=== PATIENT | female | born 1960 | race African-American/Black ===

== ENCOUNTER 2024-06-27 13:46 | Inpatient (IN) | payer BC, OTHER ==
[~2024-06-27] VITALS: Ht 175.3 cm; Wt 119.7 kg
[2024-06-27 13:55] VITALS: O2SAT 99
[2024-06-27] MEDS: METOCLOPRAMIDE HCL 10MG TABLET PO ONE (15:49)
[2024-06-27] MEDS: DIPHENHYDRAMINE 50MG/ML VIAL IM ONE (15:49)
[2024-06-27] MEDS: KETOROLAC 30MG/ML VIAL IM ONE (15:49)
[2024-06-27 16:54] LABS: BASOPHILS % 0.1 % (0.0-2.0); HEMOGLOBIN. 12.8 g/dL (12.0-16.0); LYMPHOCYTES % 12.2 % (20.0-50.0); MEAN CORPUSCULAR HEMOGLOBIN 27.1 pg (28.0-32.0); MEAN CORPUSCULAR HGB CONC 32.9 g/dL (31.0-37.0); MEAN CORPUSCULAR VOLUME 82.2 fL (81.0-99.0); MEAN PLATELET VOLUME 7.3 fl (7.4-10.4); MONOCYTES % 3.2 % (2.0-8.0); NEUTROPHILS % 84.5 % (40.0-76.0); PLATELET 385 x1000/uL (130-400); RED BLOOD CELL COUNT 4.75 mill/uL (4.2-5.4); RED CELL DISTRIBUTION WIDTH 14.8 % (11.6-14.6); WHITE BLOOD COUNT 13.2 x1000/uL (4.5-11.0)
[2024-06-27 17:05] LABS: PROTHROMBIN TIME 10.9 sec (9.6-11.0)
[2024-06-27 17:08] LABS: POTASSIUM 4.2 mEq/L (3.5-5.1)
[2024-06-27 17:09] LABS: CALCIUM 9.6 mg/dL (8.7-10.4)
[2024-06-27 17:14] LABS: CLARITY URINE CLOUDY (CLEAR); COLOR URINE YELLOW (YELLOW); GLUCOSE URINE NEGATIVE (NEGATIVE); KETONES URINE NEGATIVE (NEGATIVE); LEUKOCYTE ESTERASE URINE TRACE (NEGATIVE); NITRITE URINE NEGATIVE (NEGATIVE); OCCULT BLOOD URINE NEGATIVE (NEGATIVE); PROTEIN URINE TRACE (NEGATIVE); SPECIFIC GRAVITY URINE 1.034 (1.005-1.030)
[2024-06-27 17:14] LABS: CREATININE 1.3 mg/dL (0.6-1.0)
[2024-06-27 17:33] LABS: WBC URINE 0-2 /hpf (0-2)
[2024-06-27 17:35] LABS: BACTERIA URINE NONE SEEN; RBC URINE NONE SEEN /hpf (0-2); SQUAMOUS EPITHELIAL CELL URINE 1+ /lpf (RARE/1+)
[2024-06-27] MEDS: MORPHINE SULFATE 4 MG/ML INJ (FOR IV/IM USE) IM ONE (17:37)
[2024-06-27 17:48] LABS: TROPONIN I HIGH SENSITIVITY 17 ng/L (3.0-34)
[2024-06-27 21:40] VITALS: BP 143/73; PULSE 63; RESP 18; TEMP 36.2
[2024-06-27] MEDS ORDERED: ACETAMINOPHEN 325MG TABLET PO PRN (22:45)
[2024-06-27] MEDS: AMLODIPINE 10MG TABLET PO SCH (22:45)
[2024-06-27] MEDS ORDERED: LORAZEPAM 0.5MG TABLET PO PRN (22:45)
[2024-06-27] MEDS ORDERED: CLONIDINE 0.1MG TABLET PO PRN (22:45)
[2024-06-27] MEDS ORDERED: MAGNESIUM/ALUMINUM HYDROXIDE/SIMETHICONE 30ML UDC PO PRN (22:45)
[2024-06-27] MEDS ORDERED: ZOLPIDEM TARTRATE 5MG TABLET PO PRN (22:45)
[2024-06-27] MEDS ORDERED: NA PHOS,M-B/NA PHOS,DI-BA ENEMA 118ML PR PRN (22:45)
[2024-06-27] MEDS ORDERED: DOCUSATE SODIUM 100MG CAPSULE PO PRN (22:45)
[2024-06-27] MEDS ORDERED: DEXTROSE 50% WATER 50ML SYRINGE IV PRN (23:00)
[2024-06-28] MEDS ORDERED: IPRATROPIUM/ALBUTEROL 0.5-3(2.5)MG/3ML NEB HHN PRN (02:30)
[2024-06-28] MEDS: PANTOPRAZOLE 40MG DR TABLET PO SCH (06:30)
[2024-06-28] MEDS: BLOOD SUGAR DIAGNOSTIC STRIP TEST SCH (06:56)
[2024-06-28 06:58] LABS: BASOPHILS % 0.1 % (0.0-2.0); EOSINOPHILS % 0.1 % (0.0-5.0); HEMATOCRIT. 36.1 % (36.0-48.0); HEMOGLOBIN. 11.9 g/dL (12.0-16.0); LYMPHOCYTES % 26.6 % (20.0-50.0); MEAN CORPUSCULAR HEMOGLOBIN 26.9 pg (28.0-32.0); MEAN CORPUSCULAR HGB CONC 32.9 g/dL (31.0-37.0); MEAN CORPUSCULAR VOLUME 81.8 fL (81.0-99.0); MEAN PLATELET VOLUME 7.1 fl (7.4-10.4); MONOCYTES % 6.4 % (2.0-8.0); NEUTROPHILS % 66.8 % (40.0-76.0); PLATELET 317 x1000/uL (130-400); RED BLOOD CELL COUNT 4.41 mill/uL (4.2-5.4); RED CELL DISTRIBUTION WIDTH 14.9 % (11.6-14.6); WHITE BLOOD COUNT 11.9 x1000/uL (4.5-11.0)
[2024-06-28] MEDS: INSULIN LISPRO 100 UNITS/ML SUBCUT SCH (07:10)
[2024-06-28 07:13] LABS: POTASSIUM 4.1 mEq/L (3.5-5.1)
[2024-06-28 07:14] LABS: CALCIUM 9.3 mg/dL (8.7-10.4)
[2024-06-28 07:16] LABS: CREATININE 1.5 mg/dL (0.6-1.0)
[2024-06-28 07:18] LABS: THYROID STIMULATING HORMONE 1.14 uIU/mL (0.55-4.78)
[2024-06-28 08:00] VITALS: BP 131/89; PULSE 56; RESP 20; TEMP 36.8; O2SAT 100
[2024-06-28] MEDS: METOPROLOL TARTRATE 50MG TABLET PO SCH (09:00)
[2024-06-28] MEDS: ENOXAPARIN 40MG/0.4ML SYR SUBCUT SCH (09:32)
[2024-06-28 12:00] VITALS: BP 151/74; PULSE 89; RESP 21; TEMP 36.8; O2SAT 98
[2024-06-28] MEDS ORDERED: AMLO10TA80 MT (13:06)
[2024-06-28] MEDS ORDERED: ATORVASTATIN CALCIUM 40MG TABLET PO SCH (21:00)
== END 2024-06-28 15:05 | disposition home or self-care (01) | DRG 199 ==
LOC: ER 13:46 → 7EST 18:38 → EDBEDREQTM 18:45 → EDBEDREQ 18:45
PROVIDERS: ADMIT Internal Medicine Pulmonary Disease; ATTEND Internal Medicine Pulmonary Disease
DX: I16.0 Hypertensive urgency (principal); N17.0 Acute kidney failure with tubular necrosis; I50.9 Heart failure, unspecified; I11.0 Hypertensive heart disease with heart failure; D72.829 Elevated white blood cell count, unspecified; J45.909 Unspecified asthma, uncomplicated; E66.9 Obesity, unspecified; F41.9 Anxiety disorder, unspecified; Z79.899 Other long term (current) drug therapy; Z68.39 Body mass index [BMI] 39.0-39.9, adult
CPT/HCPCS: 36415; 71045; 80048; 81003; 82962; 83036; 83880; 84443; 84484; 85025; 86850; 86900; 99285; J1200; J1650; J1885; J2270; J8597